=== PATIENT | male | born 1990 | race Caucasian/White ===

== ENCOUNTER → 2022-08-10 | Outpatient (CLI) | payer OTHER ==
[~2022-08-10] MED LIST: ACET1TAB55 PO; ALBU8.5H INH; GLUCAGON INJ 1MG VIAL As Ordered ONE; ISOVUE-370 76% 100ML VIAL As Ordered ONE; NEULUMEX 0.1% SUSPENSION 450ML BOTTLE (FORMERLY VOLUMEN) As Ordered ONE
== END ==
LOC: M RAD 09:58
PROVIDERS: ATTEND Internal Medicine Gastroenterology
DX: K56.1 Intussusception (principal)
CPT/HCPCS: 74177; J1610; Q9967

== ENCOUNTER 2022-08-15 11:34 | Day surgery (SDC) | payer OTHER ==
[~2022-08-15] VITALS: Ht 175.3 cm; Wt 84.7 kg
[~2022-08-15 11:34] MED LIST changes: -GLUCAGON INJ 1MG VIAL As Ordered ONE; -ISOVUE-370 76% 100ML VIAL As Ordered ONE; -NEULUMEX 0.1% SUSPENSION 450ML BOTTLE (FORMERLY VOLUMEN) As Ordered ONE; +NS 1,000 ML IV ONE
[2022-08-15] MEDS ORDERED: propofoL 500 MG/50 ML VIAL As Ordered ONE (14:56)
[2022-08-15] MEDS ORDERED: fentaNYL 100 MCG/2 ML INJECTION As Ordered ONE (14:56)
[2022-08-15] MEDS ORDERED: LIDOCAINE 2% 100MG/5ML SDV (FOR ANES.) As Ordered ONE (14:56)
[2022-08-15 15:40] VITALS: BP 129/61
== END 2022-08-15 15:55 | disposition home or self-care (01) ==
LOC: M OPP 11:34
PROVIDERS: ATTEND Internal Medicine Gastroenterology
DX: R10.9 Unspecified abdominal pain (principal); R93.3 Abnormal findings on diagnostic imaging of other parts of digestive tract; K20.90 Esophagitis, unspecified without bleeding; K20.0 Eosinophilic esophagitis; F17.220 Nicotine dependence, chewing tobacco, uncomplicated; Z79.51 Long term (current) use of inhaled steroids; Z79.1 Long term (current) use of non-steroidal anti-inflammatories (NSAID)
CPT/HCPCS: 43239; 45378; 88305; J3010

== ENCOUNTER → 2022-09-14 | Outpatient (CLI) | payer OTHER ==
[~2022-09-14] MED LIST changes: -NS 1,000 ML IV ONE
== END ==
LOC: M PLAIMG 11:41
PROVIDERS: ATTEND Internal Medicine Pulmonary Disease
DX: R91.1 Solitary pulmonary nodule (principal)

== ENCOUNTER → 2022-10-24 | Outpatient (CLI) | payer OTHER ==
[2022-10-24 15:00] LABS: EOS # 0.4 10^3/uL (0.0-0.5)
== END ==
LOC: M LAB 14:00
PROVIDERS: ATTEND Internal Medicine Pulmonary Disease
DX: J45.50 Severe persistent asthma, uncomplicated (principal)

== ENCOUNTER 2022-12-19 14:20 | Emergency (ER) | payer OTHER ==
[~2022-12-19] VITALS: Ht 170.2 cm; Wt 86.9 kg
[2022-12-19] MEDS ORDERED: CETI10CH PO (14:57)
[2022-12-19] MEDS ORDERED: PRED10TA2 (14:57)
[2022-12-19] MEDS ORDERED: AMIT10TA7 (14:57)
[2022-12-19] MEDS ORDERED: RIZA10TA58 (14:57)
[2022-12-19] MEDS ORDERED: ADVA230A (14:57)
[2022-12-19 17:19] LABS: LIPASE 39 U/L (12-53)
[2022-12-19 17:20] LABS: CK-MB VALUE MASS < 1.0 NG/ML (<3.6)
[2022-12-19 17:21] LABS: ALBUMIN 4.5 G/DL (3.2-5.2); ALKALINE PHOSPHATASE 67 U/L (46-116); ALT/SGPT 30 U/L (7.0-40); AST/SGOT 20 U/L (<34); BILIRUBIN,DIRECT 0.3 MG/DL (<0.4); BILIRUBIN,TOTAL 0.9 MG/DL (0.3-1.2); BLOOD UREA NITROGEN 11 MG/DL (9-23); CALCIUM LEVEL 9.3 MG/DL (8.5-10.1); CARBON DIOXIDE LEVEL 26 MMOL/L (20-31); CHLORIDE LEVEL 103 MMOL/L (98-107); CREATININE FOR GFR 0.81 MG/DL (0.70-1.30); GLOMERULAR FILTRATION RATE > 60.0 (>60); GLUCOSE, FASTING 109 MG/DL (60-100); MAGNESIUM LEVEL 2.3 MG/DL (1.8-2.4); POTASSIUM SERUM 4.5 MMOL/L (3.5-5.1); SODIUM LEVEL 137 MMOL/L (136-145); TOTAL PROTEIN 7.4 G/DL (5.7-8.2)
[2022-12-19] MEDS ORDERED: methylPREDNISolone 125MG 2ML VIAL IV ONE (17:30)
[2022-12-19] MEDS ORDERED: ALBUTEROL SULFATE 2.5MG/0.5ML INH NEB SOLN NEB ONE (17:30)
[2022-12-19] MEDS ORDERED: IPRATROPIUM 0.5MG/ALBUTEROL 2.5MG INH SOL UD 3ML (DUONEB) NEB ONE (17:30)
[2022-12-19 17:33] LABS: CPK CREATINE PHOSPHOKINASE 120 U/L (46-171); MB/CK RELATIVE INDEX 0.83 (< OR =4)
[2022-12-19 17:50] LABS: BASO % 0.2 % (0.0-1.0); EOS % 0.4 % (0.0-3.0); HEMATOCRIT 40.5 % (42.0-52.0); HEMOGLOBIN 13.7 g/dl (13.5-17.5); LYMPH # 1.3 10^3/uL (1.5-5.0); LYMPH % 13.8 % (24.0-44.0); MEAN CORPUSCULAR HEMOGLOBIN 31.3 pg (27.0-33.0); MEAN CORPUSCULAR HGB CONC 33.8 g/dl (32.0-36.5); MEAN CORPUSCULAR VOLUME 92.5 fl (80.0-96.0); MONO # 0.7 10^3/uL (0.0-0.8); MONO % 7.1 % (2.0-8.0); NEUTROPHILS # 7.5 10^3/uL (1.5-8.5); PLATELET COUNT, AUTOMATED 171 10^3/uL (150-450); RED BLOOD COUNT 4.38 10^6/uL (4.30-6.10); WHITE BLOOD COUNT 9.6 10^3/uL (4.0-10.0)
[2022-12-19 19:45] VITALS: BP 126/72; TEMP 97.9; O2SAT 98
[2022-12-19] MEDS ORDERED: ISOVUE-370 76% 100ML VIAL As Ordered ONE (20:01)
[2022-12-19 20:52] VITALS: O2SAT 98
[2022-12-19 21:17] LABS: BASO % 0.2 % (0.0-1.0); EOS % 0.1 % (0.0-3.0); HEMATOCRIT 37.1 % (42.0-52.0); HEMOGLOBIN 13.2 g/dl (13.5-17.5); LYMPH # 0.5 10^3/uL (1.5-5.0); LYMPH % 5.4 % (24.0-44.0); MEAN CORPUSCULAR HGB CONC 35.6 g/dl (32.0-36.5); MONO # 0.2 10^3/uL (0.0-0.8); MONO % 1.9 % (2.0-8.0); NEUTROPHILS # 8.1 10^3/uL (1.5-8.5); NEUTROPHILS % 91.8 % (36.0-66.0); PLATELET COUNT, AUTOMATED 148 10^3/uL (150-450); RED BLOOD COUNT 4.12 10^6/uL (4.30-6.10); WHITE BLOOD COUNT 8.8 10^3/uL (4.0-10.0)
[2022-12-19] MEDS ORDERED: PRED20TA PO (21:28)
== END 2022-12-19 22:08 | disposition home or self-care (01) ==
LOC: M ED 14:20 → EDBD 14:20 → M ED 22:08
DX: R07.89 Other chest pain (principal); R06.02 Shortness of breath; J45.909 Unspecified asthma, uncomplicated; G43.909 Migraine, unspecified, not intractable, without status migrainosus; Z79.51 Long term (current) use of inhaled steroids; Z79.52 Long term (current) use of systemic steroids; Z79.899 Other long term (current) drug therapy
CPT/HCPCS: 71046; 71275; 80048; 80076; 82550; 82553; 83690; 83735; 84484; 85025; 93005; 94640; 96374; 99284; J2930; Q9967

== ENCOUNTER → 2023-02-12 | Outpatient (CLI) | payer OTHER ==
[~2023-02-12] MED LIST changes: +ADVA230A; +AMIT10TA7; +CETI10CH PO; +PRED10TA2; +PRED20TA PO; +RIZA10TA58
== END ==
LOC: M PLAIMG 15:12
PROVIDERS: ATTEND Nurse Practitioner Family
DX: R52 Pain, unspecified (principal)